=== PATIENT | male | born 1960 | race African-American/Black ===

== ENCOUNTER 2016-06-14 08:10 | Outpatient (CLI) | payer BC, OTHER | END 2016-06-14 23:59 | disposition home or self-care (01) | LOC: LAB 08:10 | PROVIDERS: ATTEND Family Medicine | DX: E03.9 Hypothyroidism, unspecified (principal); E55.9 Vitamin D deficiency, unspecified | CPT/HCPCS: 36415; 82306; 84443 ==

== ENCOUNTER 2023-07-15 10:28 | Outpatient (CLI) | payer BC, OTHER ==
[2023-07-15 11:02] LABS: BASOPHILS # (AUTO) 0.1 K/UL (0.0-0.2); EOSINOPHILS % (AUTO) 0.5 % (0.0-7.0); HEMATOCRIT 41.3 % (36.7-47.1); HEMOGLOBIN 13.9 g/dL (12.5-16.3); LYMPHOCYTES # (AUTO) 1.9 K/uL (0.8-4.8); LYMPHOCYTES % (AUTO) 34.1 % (20.5-51.5); MEAN CORPUSCULAR HEMOGLOBIN 28.5 uug (23.8-33.4); MEAN CORPUSCULAR HGB CONC 34 g/dL (32.5-36.3); MEAN CORPUSCULAR VOLUME 84.7 fL (73.0-96.2); MONOCYTES # (AUTO) 0.4 K/uL (0.1-1.30); MONOCYTES % (AUTO) 7.1 % (0.0-11.0); NEUTROPHILS # (AUTO) 3.2 K/uL (1.8-8.9); NEUTROPHILS % (AUTO) 57.3 % (38.5-71.5); PLATELET COUNT (AUTO) 253 K/uL (152-348); RED BLOOD CELL COUNT(AUTO) 4.88 MIL/uL (4.06-5.63); RED CELL DISTRIBUTION WIDTH 14.4 % (12.1-16.2); WHITE BLOOD COUNT (AUTO) 5.5 K/uL (3.6-10.2)
[2023-07-15 11:17] LABS: DIFFERENTIAL COMMENT 1
[2023-07-15 11:32] LABS: *BILIRUBIN,URIN NEGATIVE (NEGATIVE); *BLOOD, URINE NEGATIVE (NEGATIVE); *CLARITY,URINE CLEAR (CLEAR); *COLOR,URINE YELLOW (YELLOW); *KETONES,URINE NEGATIVE (NEGATIVE); *PROTEIN,URINE NEGATIVE (NEGATIVE); *UROBILINOGEN,URINE 0.2 E.U./dl (NORMAL); LEUKOCYTE ESTERASE ,URINE NEGATIVE (NEGATIVE); NITRITE, URINE NEGATIVE (NEGATIVE); UGLUCOSE NEGATIVE (NEGATIVE)
[2023-07-15 11:44] LABS: CALCIUM 9.1 mg/dL (8.5-10.1); POTASSIUM 3.6 mmol/L (3.5-5.1)
== END 2023-07-15 23:59 | disposition home or self-care (01) ==
LOC: LAB 10:28
PROVIDERS: ATTEND Surgery
DX: Z01.818 Encounter for other preprocedural examination (principal)
CPT/HCPCS: 36415; 71046; 85025; 85730

== ENCOUNTER 2023-07-17 05:40 | Day surgery (SDC) | payer BC, OTHER ==
[2023-07-17] MEDS ORDERED: GABAPENTIN 300 MG CAPSULE ONE ×2 (06:16→09:35)
[2023-07-17] MEDS ORDERED: ACETAMINOPHEN ES 500 MG TABLET ONE (06:17)
[2023-07-17] MEDS ORDERED: BUPIVACAINE PF 0.5% 30 ML VIAL ONE (06:19)
[2023-07-17] MEDS ORDERED: LIDOCAINE 1%-EPI 1:100,000 20 ML VIAL ONE (06:19)
[2023-07-17] MEDS ORDERED: BACITRACIN/POLYMYXIN B OINT 15 GM TUBE ONE (06:19)
[2023-07-17] MEDS ORDERED: FAMOTIDINE. 20 MG/2 ML VIAL IV ONE (06:56)
[2023-07-17] MEDS ORDERED: MIDAZOLAM HCL 2 MG/2 ML VIAL ONE (06:56)
[2023-07-17] MEDS ORDERED: FENTANYL CITRATE 100 MCG/2 ML AMPUL ONE (06:56)
[2023-07-17] MEDS ORDERED: ROCURONIUM BROMIDE 50 MG/5 ML VIAL ONE (06:56)
[2023-07-17] MEDS ORDERED: CEFAZOLIN 2 G in IV DEXTROSE 5% 100 ML IV ONE (07:00)
[2023-07-17] MEDS ORDERED: PROPOFOL 200 MG/20 ML BOTTLE ONE (08:00)
[2023-07-17] MEDS ORDERED: PHYTONADIONE 10 MG/1 ML AMPUL ONE (08:17)
[2023-07-17] MEDS ORDERED: THROMBIN (BOVINE) 5,000 UNITS VIAL ONE (08:36)
[2023-07-17] MEDS ORDERED: ACETAMINOPHEN 325 MG TABLET ONE (09:34)
[2023-07-17] MEDS ORDERED: CELECOXIB 200 MG CAPSULE PO ONE (10:00)
[2023-07-17 11:25] VITALS: TEMP 98.3
== END 2023-07-17 11:40 | disposition home or self-care (01) ==
LOC: DS 05:40
PROVIDERS: ATTEND Surgery
DX: K60.3 Anal fistula (principal); K64.4 Residual hemorrhoidal skin tags; I10 Essential (primary) hypertension; E78.5 Hyperlipidemia, unspecified; E03.9 Hypothyroidism, unspecified; E66.9 Obesity, unspecified; F32.9 Major depressive disorder, single episode, unspecified; Z79.899 Other long term (current) drug therapy; Z98.890 Other specified postprocedural states
CPT/HCPCS: 46260; 46270; J0690; J2250; J3010; J3430; J3490; J7120; A4649; A4663; A9150; J1100; J2405

== ENCOUNTER 2023-09-12 09:31 | Outpatient (CLI) | payer BC, OTHER | END 2023-09-12 23:59 | disposition home or self-care (01) | LOC: RAD 09:31 | PROVIDERS: ATTEND Family Medicine | DX: R22.43 Localized swelling, mass and lump, lower limb, bilateral (principal) ==

== ENCOUNTER → 2024-04-29 | Emergency (ER) | payer BC, OTHER ==
[~2024-04-29] VITALS: Ht 172.7 cm; Wt 130.6 kg
[~2024-04-29] MED LIST: NAPROXEN 500 MG TABLET ONE
[2024-04-29 00:57] VITALS: O2SAT 98
[2024-04-29 01:28] VITALS: TEMP 97.8
[2024-04-29] MEDS: NAPROXEN 500 MG TABLET PO ONE (01:28)
== END | disposition home or self-care (01) ==
LOC: ER 00:56
DX: I11.9 Hypertensive heart disease without heart failure (principal); E78.5 Hyperlipidemia, unspecified; E03.9 Hypothyroidism, unspecified; Z79.899 Other long term (current) drug therapy
CPT/HCPCS: A4606; A4663